=== PATIENT | male | born 1970 | race African-American/Black ===

== ENCOUNTER 2018-09-17 14:21 | Outpatient (CLI) | payer OTHER ==
--- NOTE | 2018-09-17 14:37 | RAD ---
XR Chest Pa Lat STANDARD HISTORY: Cough COMPARISON: None FINDINGS: The heart size is normal. The lungs are well expanded without focal areas of consolidation, pneumothorax or pleural effusions. There are degenerative changes in the spine. IMPRESSION: No radiographic evidence of acute cardiopulmonary process.
== END 2018-09-17 14:22 | disposition home or self-care (01) ==
LOC: BICRAD 14:21
PROVIDERS: ATTEND Internal Medicine
DX: R05 Cough (principal)
CPT/HCPCS: 36415; 71046; 80053; 80061; 85025